=== PATIENT | female | born 2000 | race Caucasian/White ===

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

== ENCOUNTER → 2020-07-03 | Outpatient (CLI) | payer BC | LOC: COL.RAD 07:15 | DX: R11.10 Vomiting, unspecified (principal) | CPT/HCPCS: A9541 ==

== ENCOUNTER 2021-07-17 23:04 | Emergency (ER) | payer BC ==
[~2021-07-17] VITALS: Ht 160 cm; Wt 62.3 kg
[2021-07-17 23:11] VITALS: BP 122/60; TEMP 98.2
[2021-07-17 23:28] LABS: COLLECTION METHOD CLEAN CATCH
[2021-07-17 23:33] LABS: PH 6 (5-8); SQUAMOUS EPITHELIAL None Seen /hpf (0-10); URINE APPEARANCE Clear (CLEAR/HAZY); URINE BACTERIA None Seen /hpf (NONE SEEN); URINE BILIRUBIN Negative (NEGATIVE); URINE BLOOD 2+ (NEGATIVE); URINE COLOR Colorless (YELLOW); URINE GLUCOSE Negative (NEGATIVE); URINE KETONE Negative (NEGATIVE); URINE LEUKOCYTE ESTERASE Negative (NEGATIVE); URINE NITRATE Negative (NEGATIVE); URINE PROTEIN(semi-quant) Negative (NEGATIVE); URINE RBC 0-2 /hpf (0-2); URINE UROBILINOGEN Negative (NEGATIVE)
[2021-07-18 00:04] LABS: BASO % 0.3 % (0.0-2.0); EOS % 0.4 % (0.0-4.0); GRAN # 6.2 K/mm3 (1.4-6.5); GRAN % 65.7 % (42.2-75.2); HEMATOCRIT 38.8 % (35.0-45.0); HEMOGLOBIN 13.4 g/dl (12.0-15.0); LYMPH # 2.6 K/mm3 (1.2-3.4); MEAN CELL VOLUME 90 fl (80.0-95.0); MEAN CORPUSCULAR HEMOGLOBIN 31 pg (26-32); MEAN CORPUSCULAR HGB CONC 35 g/dl (33.0-37.0); MEAN PLATELET VOLUME 11.6 fl (7.4-10.4); MONO # 0.6 K/mm3 (0.1-0.6); MONO % 6.3 % (1.7-9.3); PLATELET COUNT 255 K/mm3 (130-400); REDCELL DISTRIBUTION WIDTH-CV 12.1 % (11.5-14.5)
[2021-07-18 00:27] LABS: ALBUMIN 4.2 gm/dL (3.5-5.0); BILIRUBIN,TOTAL 0.3 mg/dL (0.2-1.2); CREATININE, serum 0.73 mg/dL (0.57-1.11); POTASSIUM 3.3 mmol/L (3.5-4.5); TOTAL PROTEIN 7.4 gm/dL (6.2-8.1)
[2021-07-18 02:04] VITALS: PULSE 94
== END 2021-07-18 02:05 | disposition home or self-care (01) ==
LOC: COL.ER 23:04
PROVIDERS: Emergency Medicine Emergency Medical Services; Physician Assistant
DX: N83.201 Unspecified ovarian cyst, right side (principal); Z32.02 Encounter for pregnancy test, result negative; Z28.310 Unvaccinated for COVID-19
CPT/HCPCS: J2405; J7030; Q9967